=== PATIENT | male | born 1970 ===

== ENCOUNTER 2017-04-03 10:06 | Inpatient (IN) | payer OTHER ==
[2017-04-03 11:32] VITALS: BMI 25.0
--- NOTE | 2017-04-03 12:45 | C.PDOC ---
History Of Present Illness 47 year old male with PMHx of depression, anxiety, and alcoholism presents to the ED requesting detox from alcohol. Patient reports he wants to stop drinking , patient tried to stop on his own but became very tremulous, nauseous and unable to eat. Patient admitted to drinking last night to stabilize himself, he states he does not want to drink anymore. Patient states he feels like life is not worth living anymore and does not know how to stop drinking. Patient denies CP, SOB, abdominal pain, vomit, diarrhea, hallucinations. Time Seen by Provider: 04/03/17 11:11 Chief Complaint (Nursing): Psychiatric Evaluation History Per: Patient History/Exam Limitations: no limitations Onset/Duration Of Symptoms: Days Current Symptoms Are (Timing): Still Present Modifying Factor(s): Alcohol Associated Symptoms: Depression. denies: Suicidal Thoughts, Suicidal Plan Recent travel outside of the [place]: No Additional History Per: Patient Past Medical History Reviewed: Historical Data, Nursing Documentation, Vital Signs Vital Signs: Last Vital Signs Temp 98.8 F 04/03/17 14:24 Pulse 89 04/03/17 14:24 Resp 18 04/03/17 14:24 BP 154/86 H 04/03/17 14:24 Pulse Ox 100 04/03/17 14:24 - Medical History PMH: Anxiety, Depression Denies: Diabetes, Hepatitis, HIV, HTN, Seizures, Sexually Transmitted Disease Surgical History: No Surg Hx Family History: States: Unknown Family Hx - Social History Hx Alcohol Use: Yes Hx Substance Use: Yes - Immunization History Hx Tetanus Toxoid Vaccination: No Hx Influenza Vaccination: No Hx Pneumococcal Vaccination: No Review Of Systems Constitutional: Negative for: Fever, Chills Cardiovascular: Negative for: Chest Pain, Palpitations Respiratory: Negative for: Cough, Shortness of Breath Gastrointestinal: Negative for: Nausea, Vomiting, Abdominal Pain Skin: Negative for: Rash Neurological: Negative for: Weakness, Numbness Psych: Negative for: Depression, Suicidal ideation Physical Exam - Physical Exam Appears: Non-toxic, No Acute Distress Skin: Normal Color, Warm, Dry Head: Atraumatic, Normacephalic Eye(s): bilateral: Normal Inspection Nose: No Discharge, No Deformity Oral Mucosa: Moist Neck: Normal ROM, Supple Chest: Symmetrical Cardiovascular: Rhythm Regular, No Murmur Respiratory: Normal Breath Sounds, No Rales, No Rhonchi, No Wheezing Gastrointestinal/Abdominal: Soft, No Tenderness, No Guarding, No Rebound Extremity: Normal ROM, No Deformity, No Swelling Neurological/Psych: Oriented x3, Normal Speech, Normal Cognition Gait: Steady ED Course And Treatment - Laboratory Results Result Diagrams: 04/03/17 12:54 04/03/17 12:54 O2 Sat by Pulse Oximetry: 97 (On RA) Pulse Ox Interpretation: Normal Medical Decision Making Medical Decision Making: Impression: alcohol detox Plan: * Labs * Ativan 1 mg PO * UA * Crisis evaluation Disposition Counseled Patient/Family Regarding: Studies Performed, Diagnosis - Disposition Disposition: HOSPITALIZED Disposition Time: 14:53 Condition: GUARDED Forms: [facility] [facility] (Bengali) - Clinical Impression Clinical Impression: Suicidal ideations - Scribe Statement The provider has reviewed the documentation as recorded by the Scribe Maurisio Moreno All medical record entries made by the Scribe were at my direction and personally dictated by me. I have reviewed the chart and agree that the record accurately reflects my personal performance of the history, physical exam, medical decision making, and the department course for this patient. I have also personally directed, reviewed, and agree with the discharge instructions and disposition. Decision To Admit - Pt Status Changed To: Hospital Disposition Of: Inpatient - Admit Certification Admit to Inpatient:: After my assessment, the patient will require hospitalization for at least two midnights. This is because of the severity of symptoms shown, intensity of services needed, and/or the medical risk in this patient being treated as an outpatient. - InPatient: Physician Admission Certification: I certify that this patient requires 2 or more midnights of care for the following reason:: suicidal - . Bed Request Type: Psychiatry Patient Diagnosis: Suicidal ideations
[2017-04-03 13:00] LABS: BASO # 0.1 K/uL (0.0-0.2); BASO % 0.8 % (0.0-2.0); EOS % 0.1 % (0.0-4.0); HEMOGLOBIN 15.8 g/dL (12.0-18.0); LYMPH # 1.5 K/uL (1.0-4.3); LYMPH % 19.2 % (20.0-40.0); MEAN CELL VOLUME 94.9 fL (80.0-94.0); MEAN CORPUSCULAR HEMOGLOBIN 32.6 pg (27.0-31.0); MEAN CORPUSCULAR HGB CONC 34.4 g/dL (33.0-37.0); MEAN PLATELET VOLUME 9.6 fL (7.2-11.7); MONO # 0.5 K/uL (0.0-0.8); MONO % 6.6 % (0.0-10.0); NEUT # 5.7 K/uL (1.8-7.0); NEUT % 73.3 % (50.0-75.0); RBC 4.84 Mil/uL (4.40-5.90); RED CELL DISTRIBUTION WIDTH 12.9 % (11.5-14.5); WHITE BLOOD COUNT 7.8 K/uL (4.8-10.8)
[2017-04-03 13:02] LABS: SQUAMOUS EPITHIAL < 1 /hpf (0-5); URINE BACTERIA RARE (<OCC); URINE BILIRUBIN NEGATIVE (NEGATIVE); URINE BLOOD NEGATIVE (NEGATIVE); URINE CLARITY Clear (Clear); URINE COLOR Yellow (YELLOW); URINE GLUCOSE (UA) NORMAL (Normal); URINE HYALINE CAST 0-2 /lpf (0-2); URINE LEUKOCYTE ESTERASE NEG Leu/uL (Negative); URINE NITRATE NEGATIVE (NEGATIVE); URINE PROTEIN 2+ mg/dL (NEGATIVE)
[2017-04-03 13:15] LABS: BARBITURATES, UR NEGATIVE (NEGATIVE); BENZODIAZEPINES, UR NEGATIVE (NEGATIVE); OPIATES, UR NEGATIVE (NEGATIVE); PHENCYCLIDINE, UR NEGATIVE (NEGATIVE)
[2017-04-03 13:17] LABS: ALB/GLOB RATIO 1.2 (1.0-2.1); ALBUMIN 4.6 g/dL (3.5-5.0); ALT/SGPT 91 U/L (21-72); AST/SGOT 133 U/L (17-59); BLOOD UREA NITROGEN 11 mg/dL (9-20); CALCIUM 8.7 mg/dl (8.6-10.4); GFR AFRICAN-AMERICAN > 60; GFR NON-AFRICAN AMERICAN > 60
[2017-04-03] MEDS ORDERED: Aluminum Hydroxide/Magnesium Hydroxide Susp (30 mL) PO PRN (15:39)
--- NOTE | 2017-04-03 18:01 | PCM.BM ---
<Margarita Rodriguez - Last Filed: 04/03/17 17:59> Treatment Plan Problems - Problems identified on initial assessmt Suicidal Ideation Date Initiated: 04/03/17 Time Initiated: 18:00 Assessment reference: NA Status: Active Alcohol Abuse Date Initiated: 04/03/17 Time Initiated: 18:00 Assessment reference: NA Status: Active Treatment assets and liabiliti Patient Assests: adapts well, cooperative, educated, ADL independent, physically healthy, negotiates basic needs, cognitively intact Patient Liabilities: live alone, poor support system, substance abuse (THC and ETOH) - Milieu Protocol Maintain good personal hygiene: daily Encourage regular showers, daily Remind patient to perform daily oral care, daily Assist patient to perform ADL's (Self) , other Assist patient to perform ADL's Conduct patient checks and document Observation sheet: Q15 minutes (For Safety) Maintain personal safety: every shift Educate patient to report safety concerns to staff, every shift Monitor environment for contraband/sharps Medication safety: Monitor for expected outcome, potential side effects: every shift, Assess barriers to learning: every shift, Assess readiness for medication education: every shift <Teresa Burdick - Last Filed: 04/05/17 10:45> - Diagnosis (1) Major depressive disorder, recurrent severe without psychotic features Status: Acute Interventions: 04/05/17 10:46 * Assess/adjust medications daily and /or as needed * See patient on an individual basis 7x/week to assess symptoms of depression * Monitor for side effects & effectiveness of medications * (2) Alcohol use disorder, severe, dependence Status: Acute Interventions: 04/05/17 10:46 * Assess 7x/week regarding severity of withdrawal * Educate regarding risks, benefits, side effects and alternatives of medications * Use Motivational Interviewing for abstinence * Use CBT for relapse prevention * Medication management for withdrawal symptoms * Encourage medication assisted treatment * <Nancy Tovar - Last Filed: 04/05/17 10:47> Family Contact Family involvement: Famliy/SO not involved - Goals for Treatment Patient goals for treatment: "I want to go to rehab." Discharge/Continuing Care - Education Needs Education Needs: Patient Medication, Patient Coping Skills, Patient Placement options, Patient Community resources - Discharge Discharge Criteria: Tolerates medication w/o severe side effects, Reduction of target symptoms Discharge to:: Substance Abuse Rehab - Treatment Team Participation Discussed with Family/SO: No Was Patient/Family/SO present at Treatment Team Meeting: Yes
[2017-04-04 06:15] VITALS: O2SAT 98
[2017-04-04] MEDS: Multiple Vitamins Tab PO SCH (10:05)
--- NOTE | 2017-04-04 11:14 | PCM.PSYCH ---
Initial Psychiatric Evaluation - Initial Psychiatric Evaluation Type of Admission: Voluntary Legal Status: Capacity Chief Complaint (in patient's own words): I was feeling depressed and suicidal.' History of Present Illness and Precipitating Events: Pt is a 47yo HM male who represented to the ED with depressed mood, alcohol abuse and suicidal ideation. As per the ED notes, pt reported that he relapsed on alcohol, three months ago after a 114 day sobriety period. Pt reported drinking two pints of vodka daily , last use was 04/02/17. Pt reported smoking marijuana 3x/week, last use was . Pt reported that he is drinking alcohol since age 13 and smoking marijuana since age 11. Pt was diagnosed with anxiety and depression one year ago but is currently non-compliant with his meds. Pt reports fleeting thoughts of suicide, "thinking of giving up," with a potential plan to "drink myself to ." Pt says he would never act upon his suicidal thoughts. Pt was sent to a hospital for a psych evaluation, six months ago (pt thinks it was [facility] but is unsure). Pt was not admitted to the hospital and was ultimately sent to detox (pt cannot remember where he had detox). After detox, pt reports completing rehab at [facility] for 21 days. After rehab, pt reports receiving outpatient treatment at [facility] 5x/week 90min sessions for two months before dropping out. Pt attended AA meetings daily until he relapsed three months ago. Pt reports a family history of alcohol use. Pt currently lives with a roommate in [place]. Pt states that he has support from an ex- girlfriend and his sponsor. 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. Pt reports a history of arrest in his twenties for assault and possession with the intent to distribute. Patient remained isolated, withdrawn and depressed. He reports feelings of hopelessness and helplessness and remained depressed throughout the interview. He reports withdrawal symptoms from drinking including shakes, headaches, nausea and sweating. He reports suicidal ideation but denies any homicidal ideation. He denies any AVH or any delusions. PMH None reported Current Medications: Active Medications Generic Name Dose Route Start Last Admin Trade Name Freq PRN Reason Stop Dose Admin Al Hydrox/Mg Hydrox/Simethicone 30 ml 04/03/17 15:39 Maalox 30 Ml PO TID PRN Indigestion / Heartburn Clonidine HCl 0.1 mg 04/03/17 15:38 04/04/17 06:16 Catapres PO 0.1 mg Q4H PRN Administration Symptoms of alcohol withdrawl Folic Acid 1 mg 04/04/17 10:00 04/04/17 10:05 Folic Acid PO 1 mg DAILY GONZALEZ Administration Lorazepam 1 mg 04/03/17 15:38 04/03/17 21:40 Ativan PO 1 mg Q4H PRN Administration Symptoms of alcohol withdrawl Lorazepam 1 mg 04/03/17 15:45 04/04/17 08:26 Ativan PO 04/08/17 15:44 1 mg Q4 GONZALEZ Administration Taper Multivitamins 1 tab 04/04/17 10:00 04/04/17 10:05 Hexavitamin PO 1 tab DAILY GONZALEZ Administration Ondansetron HCl 4 mg 04/03/17 15:39 Zofran Tab PO Q8 PRN Nausea/Vomiting Pneumococcal Polyvalent Vaccine 0.5 ml 04/06/17 10:00 Pneumovax 23 Vaccine IM 04/06/17 10:01 .ONCE ONE Pseudoephedrine HCl 60 mg 04/03/17 15:39 Sudafed Tab PO QID PRN Nasal/Sinus Congestion Thiamine HCl 100 mg 04/04/17 10:00 04/04/17 10:05 Vitamin B1 Tab PO 100 mg DAILY GONZALEZ Administration Trazodone HCl 50 mg 04/03/17 15:38 04/03/17 22:50 Desyrel PO 50 mg HS PRN Administration Insomnia Past Psychiatric History - Past Psychiatric History Previous Treatment History: None Pertinent Medical Hx (Current Medical&Sleep Prob, Allergies): Allergies Allergy/AdvReac Type Severity Reaction Status Date / Time No Known Allergies Allergy Verified 04/03/17 11:31 No Known Home Med 04/03/17 Review of Systems - Review of Systems All systems: reviewed and no additional remarkable complaints except - Psychiatric Psychiatric: Anxiety, Irritability, Suicidal Ideation Mental Status Examination - Personal Presentation Personal Presentation: Looks stated age - Affect Affect: Constricted, Depressed - Motor Activity Motor Activity: Calm - Reliability in Providing Information Reliability in Providing Information: Good - Speech Speech: Organized - Mood Mood: Depressed, Anxious - Formal Thought Process Formal Thought Process: No Impairment - Obsessions/Compulsions Obsessions: No Compulsions: No - Cognitive Functions Orientation: Person, Place, Situation, Time Sensorium: Alert Attention/Concentration: Attentive Abstract Thinking: [place] Estimate of Intelligence: Below average Judgement: Imparied, as evidence by: Poor judgement, Imparied, as evidence by: Lack of insight into illness - Risk Risk: Suicidal, Withdrawal, Diminished functioning - Limitations Limitations: Living alone DSM 5 DX - DSM 5 DSM 5 Diagnosis: Major depressive disorder recurrent severe without psychotic features Alcohol use disorder severe Alcohol withdrawal Cannabis use disorder severe - Recommended/Plan of Treatment Treatment Recommendations and Plan of Treatment: Major depressive disorder recurrent severe without psychotic features CBT Psychoeducation Supportive therapy, group therapy, individual therapy Celexa 20 mg po Daily Trazodone 50 mg by mouth daily at bedtime Alcohol use disorder severe CBT Psychoeducation Supportive therapy, individual therapy Use [place] for abstinence Alcohol withdrawal CBT Psychoeducation Supportive therapy, individual therapy Ativan taper Ativan PRN Cannabis use disorder severe CBT Psychoeducation Supportive therapy, individual therapy - Smoking Cessation Smoking Cessation Initiated: No
[2017-04-05] MEDS: Multiple Vitamins Tab PO SCH (09:31)
--- NOTE | 2017-04-05 10:47 | PCM.PYCHPN ---
Psychiatric Progress Note - Psychiatric Progress Note Patient seen today, length of contact: 15 min Patient Chief Complaint: I was feeling depressed and suicidal.' Problems Identified/Issues Discussed: Patient seen and evaluated, chart reviewed and discussed with the nurse. As per the staff, patient still appears isolated, depressed and withdrawn. Patient still reports depressed mood and reports at times feelings of hopelessness or helplessness. He reports withdrawal symptoms including cramps, shakes, anxiety, headaches and sweating. He denies any auditory or visual hallucinations or any psychotic symptoms. He needs some more time for stabilization. He is compliant with her medications and denies any side effects. Supportive therapy and psychoeducation were given. Medication Change: Yes (Ativan taper) Medical Record Reviewed: Yes Mental Status Examination - Cognitive Function Orientation: Person, Place, Situation, Time Memory: Intact Attention: WNL Concentration: Poor Association: WNL Fund of Knowledge: Poor - Mood Mood: Depressed, Anxious - Affect Affect: Constricted, Depressed - Speech Speech: Soft - Formal Thought Process Formal Thought Process: No Impairment - Suicidal Ideation Suicidal Ideation: No - Homicidal Ideation Homicidal Ideation: No Goal/Treatment Plan - Goal/Treatment Plan Need for Continued Stay: Severe depression anxiety, Severe functional impairment Progress Toward Problem(s) and Goals/Treatment Plan: Major depressive disorder recurrent severe without psychotic features CBT Psychoeducation Supportive therapy, group therapy, individual therapy Celexa 20 mg po Daily Trazodone 50 mg by mouth daily at bedtime Alcohol use disorder severe CBT Psychoeducation Supportive therapy, individual therapy Use [place] for abstinence Alcohol withdrawal CBT Psychoeducation Supportive therapy, individual therapy Ativan taper Ativan PRN Cannabis use disorder severe CBT Psychoeducation Supportive therapy, individual therapy - Smoking Cessation Smoking Cessation Initiated: No
[2017-04-06] MEDS ORDERED: Pneumococcal 23-Valent Vaccine IM ONE (10:00)
[2017-04-06] MEDS ORDERED: Influenza Vaccine 60 mcg/0.5 mL SYR (4YR UP) IM ONE (10:00)
[2017-04-06] MEDS: Multiple Vitamins Tab PO SCH (10:47)
--- NOTE | 2017-04-06 14:29 | PCM.PYCHPN ---
Psychiatric Progress Note - Psychiatric Progress Note Patient seen today, length of contact: 15 min Patient Chief Complaint: "I m feeling little better.'" Problems Identified/Issues Discussed: Patient seen and evaluated, chart reviewed and discussed with the nurse. Patient reports some improvement in his mood and some improvement in the feelings of hopelessness or helplessness. He still reports withdrawal symptoms including cramps, shakes, anxiety, headaches and sweating. He still appears isolated, depressed and withdrawn. He needs some more time for stabilization. He is compliant with her medications and denies any side effects. Supportive therapy and psychoeducation were given. Medication Change: Yes (Ativan taper, start Neurontin) Medical Record Reviewed: Yes Mental Status Examination - Cognitive Function Orientation: Person, Place, Situation, Time Memory: Intact Attention: WNL Concentration: Poor Association: WNL Fund of Knowledge: Poor - Mood Mood: Depressed, Anxious - Affect Affect: Constricted, Depressed - Speech Speech: Soft - Formal Thought Process Formal Thought Process: No Impairment - Suicidal Ideation Suicidal Ideation: No - Homicidal Ideation Homicidal Ideation: No Goal/Treatment Plan - Goal/Treatment Plan Need for Continued Stay: Remain at risks for inpatient hospitalization, Discharge may exacerbated symptoms Progress Toward Problem(s) and Goals/Treatment Plan: Major depressive disorder recurrent severe without psychotic features CBT Psychoeducation Supportive therapy, group therapy, individual therapy Celexa 20 mg po Daily Trazodone 50 mg by mouth daily at bedtime Neurontin 100 mg by mouth twice a day Alcohol use disorder severe CBT Psychoeducation Supportive therapy, individual therapy Use [place] for abstinence Alcohol withdrawal CBT Psychoeducation Supportive therapy, individual therapy Ativan taper Ativan PRN Cannabis use disorder severe CBT Psychoeducation Supportive therapy, individual therapy - Smoking Cessation Smoking Cessation Initiated: No
[2017-04-07] MEDS: Multiple Vitamins Tab PO SCH (10:00)
--- NOTE | 2017-04-07 16:36 | PCM.PYCHPN ---
Psychiatric Progress Note - Psychiatric Progress Note Patient seen today, length of contact: 15 min Patient Chief Complaint: "I m feeling little better.'" Problems Identified/Issues Discussed: Patient seen and evaluated, chart reviewed and discussed with the nurse. As per staff, patient reports some improvement in his mood and some improvement in the feelings of hopelessness or helplessness. He reports some improvement in the withdrawal symptoms, but still reports anxiety, headaches and sweating. He has started coming out of his room and started attending the groups. He needs some more time for stabilization. he wants to go to the inpatient rehabilitation after discharge. He is compliant with her medications and denies any side effects. Supportive therapy and psychoeducation were given. Medication Change: Yes (Ativan taper, Increase Neurontin) Medical Record Reviewed: Yes Mental Status Examination - Cognitive Function Orientation: Person, Place, Situation, Time Memory: Intact Attention: WNL Concentration: Poor Association: WNL Fund of Knowledge: Poor - Mood Mood: Depressed, Anxious - Affect Affect: Constricted, Depressed - Speech Speech: Soft - Formal Thought Process Formal Thought Process: No Impairment - Suicidal Ideation Suicidal Ideation: No - Homicidal Ideation Homicidal Ideation: No Goal/Treatment Plan - Goal/Treatment Plan Need for Continued Stay: Remain at risks for inpatient hospitalization, Discharge may exacerbated symptoms Progress Toward Problem(s) and Goals/Treatment Plan: Major depressive disorder recurrent severe without psychotic features CBT Psychoeducation Supportive therapy, group therapy, individual therapy Celexa 20 mg po Daily Trazodone 50 mg by mouth daily at bedtime Neurontin 100 mg by mouth twice a day Alcohol use disorder severe CBT Psychoeducation Supportive therapy, individual therapy Use [place] for abstinence Alcohol withdrawal CBT Psychoeducation Supportive therapy, individual therapy Ativan taper Ativan PRN Cannabis use disorder severe CBT Psychoeducation Supportive therapy, individual therapy - Smoking Cessation Smoking Cessation Initiated: No
[2017-04-07] MEDS ORDERED: Vitamins A & D Oint UD Foilpak TOP PRN (21:14)
[2017-04-08] MEDS: Multiple Vitamins Tab PO SCH (09:39)
--- NOTE | 2017-04-08 13:18 | PCM.PYCHPN ---
Psychiatric Progress Note - Psychiatric Progress Note Patient seen today, length of contact: 15 min Patient Chief Complaint: "Better" Problems Identified/Issues Discussed: The pt is seen, chart reviewed, case discussed with staff. The pt is compliant with medications and reports no side-effects. Symptoms are improving but needs more time to stabilize. After care discussed, support and psychoeducation given. Medication Change: No Medical Record Reviewed: Yes Mental Status Examination - Cognitive Function Orientation: Person, Place, Situation, Time Memory: Intact Attention: WNL Concentration: Poor Association: WNL Fund of Knowledge: Poor - Mood Mood: Depressed, Anxious - Affect Affect: Constricted, Depressed - Speech Speech: Soft - Formal Thought Process Formal Thought Process: No Impairment - Suicidal Ideation Suicidal Ideation: No - Homicidal Ideation Homicidal Ideation: No Goal/Treatment Plan - Goal/Treatment Plan Need for Continued Stay: Remain at risks for inpatient hospitalization, Discharge may exacerbated symptoms, Severe functional impairment Progress Toward Problem(s) and Goals/Treatment Plan: Continue medications Support and psychoeducation daily Attend groups and activities daily After care planning by TITO
[2017-04-09 06:32] VITALS: TEMP 98.1
[2017-04-09] MEDS: Multiple Vitamins Tab PO SCH (09:24)
--- NOTE | 2017-04-09 13:25 | PCM.PYCHPN ---
Psychiatric Progress Note - Psychiatric Progress Note Patient seen today, length of contact: 15 min Patient Chief Complaint: "Better" Problems Identified/Issues Discussed: The pt is seen, chart reviewed, case discussed with staff. Support given, CBT and ID used briefly No new symptoms reported, improving slowly and needs more time No SEs from medications, risks discussed. After care discussed, he is interested in after care. Medication Change: No Medical Record Reviewed: Yes Mental Status Examination - Cognitive Function Orientation: Person, Place, Situation, Time Memory: Intact Attention: WNL Concentration: Poor Association: WNL Fund of Knowledge: Poor - Mood Mood: Depressed, Anxious - Affect Affect: Constricted, Depressed - Speech Speech: Soft - Formal Thought Process Formal Thought Process: No Impairment - Suicidal Ideation Suicidal Ideation: No - Homicidal Ideation Homicidal Ideation: No Goal/Treatment Plan - Goal/Treatment Plan Need for Continued Stay: Remain at risks for inpatient hospitalization, Discharge may exacerbated symptoms, Severe functional impairment Progress Toward Problem(s) and Goals/Treatment Plan: Continue medications Support and psychoeducation daily Attend groups and activities daily After care planning by TITO
[2017-04-10 06:25] VITALS: BP 122/86; PULSE 106; RESP 18
[2017-04-10] MEDS: Multiple Vitamins Tab PO SCH (09:40)
--- NOTE | 2017-04-10 10:38 | PCM.PYCHDC ---
Mental Status Examination - Mental Status Examination Orientation: Person, Place, Situation, Time Memory: Intact Mood: Neutral Affect: Constricted Speech: Soft Attention: WNL Concentration: WNL Association: WNL Fund of Knowledge: WNL Formal Thought Process: No Impairment Description of patient's judgement and insight: good, fair Psychotic Thoughts and Behaviors: denies any AVH Suicidal Ideation: No Current Homicidal Ideation?: No Discharge Summary - Discharge Note Reason for Hospitalization: Pt is a 47yo HM male who represented to the ED with depressed mood, alcohol abuse and suicidal ideation. As per the ED notes, pt reported that he relapsed on alcohol, three months ago after a 114 day sobriety period. Pt reported drinking two pints of vodka daily , last use was 04/02/17. Pt reported smoking marijuana 3x/week, last use was . Pt reported that he is drinking alcohol since age 13 and smoking marijuana since age 11. Pt was diagnosed with anxiety and depression one year ago but is currently non-compliant with his meds. Pt reports fleeting thoughts of suicide, "thinking of giving up," with a potential plan to "drink myself to ." Pt says he would never act upon his suicidal thoughts. Pt was sent to a hospital for a psych evaluation, six months ago (pt thinks it was [facility] but is unsure). Pt was not admitted to the hospital and was ultimately sent to detox (pt cannot remember where he had detox). After detox, pt reports completing rehab at [facility] for 21 days. After rehab, pt reports receiving outpatient treatment at [facility] 5x/week 90min sessions for two months before dropping out. Pt attended AA meetings daily until he relapsed three months ago. Pt reports a family history of alcohol use. Pt currently lives with a roommate in [place]. Pt states that he has support from an ex- girlfriend and his sponsor. 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 Pt reports a history of arrest in his twenties for assault and possession with the intent to distribute. Patient remained isolated, withdrawn and depressed. He reports feelings of hopelessness and helplessness and remained depressed throughout the interview. He reports withdrawal symptoms from drinking including shakes, headaches, nausea and sweating. He reports suicidal ideation but denies any homicidal ideation. He denies any AVH or any delusions. Consultations:: List each consultation separately and include: 1. Reason for request. 2. Findings. 3. Follow-up Summary of Hospital Course include:: 1. Description of specific treatment plan utilized for patients during their course of treatmen. 2. Summarize the time- course for resolution of acute symptoms and/or regressed behaviors. 3. Describe issues identified and worked on during hospitalization. 4. Describe medication utilized. 5. Describe medical problems identified and treated. 6. Reassessment of suicide risk Summary of Hospital Course: During the course of his stay, patient (pt) started progressively improving and he no longer remained irritable, depressed, and suicidal. His mood was improved and he started attending groups and meetings and started socializing. Patient denied any feelings of hopelessness, helplessness, and worthlessness, denied any problem with the sleep or appetite, denied suicidal ideation or homicidal ideation. Pt denied any auditory or visual hallucinations. Some changes were made in his current medications and patient was discharged on following medications. He tolerated these medications very well and denied any side effects. CBT and NH were used. Pt is to attend inpatient rehab at [facility]. - Diagnosis (1) Major depressive disorder, recurrent severe without psychotic features Status: Acute (2) Alcohol use disorder, severe, dependence Status: Acute - Final Diagnosis (DSM 5) Condition upon Discharge: GUARDED DSM 5: Major depressive disorder recurrent severe without psychotic features Alcohol use disorder severe Alcohol withdrawal Cannabis use disorder severe Disposition: HOME/ ROUTINE Follow-up Treatment Plan: Education: Pt was educated and counseled about the risks and benefits of taking and not taking medications. Pt was educated and counseled about the risks of drinking and abusing drugs. Pt was educated and counseled to go to the ER or call 911 if pt develop suicidal ideation or homicidal ideation, worsening of symptoms or severe side effects of the meds. Prescriptions/Medication Reconciliation: Citalopram [celEXA] 20 mg PO DAILY #30 tab Gabapentin [Neurontin] 100 mg PO BID #60 cap traZODone [Desyrel] 50 mg PO HS PRN #30 tab PRN Reason: Insomnia - Smoking Cessation Smoking Cessation Medication prescribed: No - Antipsychotic Medications Pt discharged on 2 or more routine antipsychotic medications: No
== END 2017-04-10 11:57 | disposition home or self-care (01) | DRG 885 ==
LOC: C.ER 10:06 → C.9E 15:08 → C.5E 15:22
PROVIDERS: ADMIT Psychiatry & Neurology Psychiatry; ATTEND Psychiatry & Neurology Psychiatry
PROC: GZ3ZZZZ Medication Management (ICD-10-PCS; principal; 2017-04-03)
PROC: GZHZZZZ Group Psychotherapy (ICD-10-PCS; 2017-04-03)
PROC: GZ56ZZZ Individual Psychotherapy, Supportive (ICD-10-PCS; 2017-04-03)
PROC: HZ89ZZZ Medication Management for Substance Abuse Treatment, Other Replacement Medication (ICD-10-PCS; 2017-04-03)
PROC: HZ56ZZZ Individual Psychotherapy for Substance Abuse Treatment, Psychoeducation (ICD-10-PCS; 2017-04-03)
DX: F33.2 Major depressive disorder, recurrent severe without psychotic features (principal); R45.851 Suicidal ideations; F10.239 Alcohol dependence with withdrawal, unspecified; F12.20 Cannabis dependence, uncomplicated; F41.9 Anxiety disorder, unspecified; F17.210 Nicotine dependence, cigarettes, uncomplicated; F12.10 Cannabis abuse, uncomplicated; Z91.14 Patient's other noncompliance with medication regimen